=== PATIENT | female | born 1990 | race Caucasian/White ===

== ENCOUNTER 2017-10-12 19:25 | Emergency (ER) | payer OTHER ==
[~2017-10-12] VITALS: Ht 149.9 cm; Wt 73.5 kg
[~2017-10-12 19:25] MED LIST: BENTYL20 MG PO; Bactrim Ds Tab1 EACH PO; GLIM2 PO; HYDACE25S PR; INSDET100 SQ; LISI5 PO; METF500 PO; Norco 5-325 Ta1 EACH PO; PERM5TC TOP; SULTRIDS PO; Zofran Odt4 MG SL; [UNRECOGNIZED DRUG - OTHER]; [UNRECOGNIZED DRUG - OTHER] PO; [UNRECOGNIZED DRUG - REMARK]
[2017-10-12 19:54] LABS: BASOPHILS ABSOLUTE AUTO 0.02 K/mm3 (0.00-0.23); BASOPHILS PERCENT AUTO 0 % (0-2); EOSINOPHILS ABSOLUTE AUTO 0.14 K/mm3 (0.00-0.68); EOSINOPHILS PERCENT AUTO 1 % (0-6); Hematocrit 36.2 % (33.0-51.0); Hemoglobin 12.6 g/dL (11.5-16.0); IMMATURE GRAN ABSOLUTE AUTO 0.03 K/mm3 (0.00-0.10); IMMATURE GRAN PERCENT AUTO 0 % (0-1); LYMPHOCYTES PERCENT AUTO 28 % (21-46); MONOCYTES ABSOLUTE AUTO 0.58 K/mm3 (0.16-1.47); MONOCYTES PERCENT AUTO 4 % (4-13); Mean Corpuscular HGB 30.7 pg (26.0-34.0); Mean Corpuscular HGB Conc 34.8 g/dL (31.5-36.5); Mean Corpuscular Volume 88 fL (80-100); Mean Platelet Volume 9.4 fL (9.1-12.4); NEUTROPHILS ABSOLUTE AUTO 9.29 K/mm3 (1.96-9.15); NEUTROPHILS PERCENT AUTO 66 % (41-73); Platelet Count 324 K/mm3 (150-400); RDW Coefficient Variation 12.9 % (11.7-14.2); RDW Standard Deviation 41.7 fL (35.1-46.3); White Blood Cell Count 14.06 K/mm3 (4.00-11.30)
[2017-10-12 20:14] LABS: Alanine Aminotransfer (ALT/SGP 21 U/L (12-78); Albumin, Blood 3.2 g/dL (3.4-5.0); Albumin/Globulin Ratio 0.8 (0.8-1.8); Alk Phos 67 U/L (50-136); Anion Gap 7 mmol/L (6-16); Aspartate Aminotrans (AST/SGOT 19 U/L (12-37); Bilirubin, Total 0.3 mg/dL (0.1-1.0); Blood Urea Nitrogen 9 mg/dL (8-24); Bun/Creatinine Ratio 14.8 (12.0-20.0); CO2, Blood 25 mmol/L (21-32); Chloride, Blood 107 mmol/L (98-108); Creatinine, Blood 0.61 mg/dL (0.40-1.00); Globulin, Blood 3.9 g/dL (2.2-4.0); Glomerular Filtration Rate >60 (60-); Glucose, Blood 154 mg/dL (70-99); Potassium, Blood 3.8 mmol/L (3.5-5.5); Sodium, Blood 139 mmol/L (136-145); Total Protein, Blood 7.1 g/dL (6.4-8.2)
[2017-10-12 20:30] LABS: Beta HCG, Quantitative, Serum 27237 mIU/mL (0-3)
[2017-10-12 22:49] LABS: Source, Urine Clean Catch
[2017-10-12 22:51] LABS: Bilirubin, Urine Neg (Neg); Blood, Urine Neg (Neg); Glucose Qualitative, Urine 4+ (Neg); Ketones, Urine Neg (Neg); Leukocyte Esterase, Urine Neg (Neg); Nitrite, Urine Neg (Neg); Protein, Urine 1+ (Neg); Specific Gravity, Urine 1.025 (1.003-1.022); Urobilinogen, Urine NORM (Normal)
[2017-10-12 22:56] LABS: Appearance, Urine Clear (Clear); Color, Urine Yellow (P-Yellow)
[2018-03-22] MEDS ORDERED: Percocet 5-3251 EACH PO (07:35)
[2018-03-22] MEDS ORDERED: IBUP800 PO (07:36)
[2018-03-22] MEDS ORDERED: LANTUS SC (07:42)
[2018-03-22] MEDS ORDERED: GLARGINE SC (07:42)
[2018-03-22] MEDS ORDERED: NOVLOG SC (07:43)
[2018-03-22] MEDS ORDERED: ASPART SC (07:43)
== END 2017-10-12 23:34 | disposition home or self-care (01) ==
LOC: ER 19:25
PROVIDERS: Emergency Medicine
DX: O20.0 Threatened abortion (principal); O24.912 Unspecified diabetes mellitus in pregnancy, second trimester; Z79.84 Long term (current) use of oral hypoglycemic drugs; Z79.4 Long term (current) use of insulin; Z3A.15 15 weeks gestation of pregnancy
CPT/HCPCS: 36415; 76815; 80053; 83690; 84702; 85025; 99284

== ENCOUNTER → 2017-11-20 | Outpatient (CLI) | payer OTHER ==
[~2017-11-20] MED LIST changes: +ASPART SC; +GLARGINE SC; +IBUP800 PO; +INS70/30I; +LANTUS SC; +NOVLOG SC; +Percocet 5-3251 EACH PO; +Tamiflu75 MG PO; +Verotin-Gr Cap1 EACH PO
[2017-11-20 18:47] LABS: U Amphetamine Screen Not Detected; U Barbituate Screen Not Detected; U Benzodiazapine Screen Not Detected; U Buprenorphine Screen Not Detected; U Cannabinoids Screen DETECTED; U Cocaine Screen Not Detected; U Methadone Screen Not Detected; U Methamphetamine Screen DETECTED; U Opiates Screen Not Detected; U Oxycodone Screen Not Detected; U Phencyclidine Screen Not Detected; U Propoxyphene Screen Not Detected
[2017-11-22 13:33] LABS: MDA Not Detected (NOTDET); MDEA Not Detected (NOTDET); MDMA Not Detected (NOTDET)
== END | disposition home or self-care (01) ==
LOC: LAB 11:45
PROVIDERS: Obstetrics & Gynecology
DX: Z34.80 Encounter for supervision of other normal pregnancy, unspecified trimester (principal)
CPT/HCPCS: G0480

== ENCOUNTER 2017-12-09 18:16 | Emergency (ER) | payer OTHER ==
[~2017-12-09] VITALS: Ht 149.9 cm; Wt 76.7 kg
[~2017-12-09 18:16] MED LIST changes: -ASPART SC; -GLARGINE SC; -IBUP800 PO; -INS70/30I; -LANTUS SC; -NOVLOG SC; -Percocet 5-3251 EACH PO; -Tamiflu75 MG PO; -Verotin-Gr Cap1 EACH PO
[2017-12-09] MEDS ORDERED: Verotin-Gr Cap1 EACH PO (18:37)
[2017-12-09 19:26] LABS: Influenza A Positive (NEGATIVE); Influenza B Negative (NEGATIVE)
[2017-12-09] MEDS ORDERED: Tamiflu75 MG PO (19:44)
[2018-03-22] MEDS ORDERED: Percocet 5-3251 EACH PO (07:35)
[2018-03-22] MEDS ORDERED: IBUP800 PO (07:36)
[2018-03-22] MEDS ORDERED: LANTUS SC (07:42)
[2018-03-22] MEDS ORDERED: GLARGINE SC (07:42)
[2018-03-22] MEDS ORDERED: ASPART SC (07:43)
[2018-03-22] MEDS ORDERED: NOVLOG SC (07:43)
== END 2017-12-09 19:46 | disposition home or self-care (01) ==
LOC: ER 18:16
PROVIDERS: Physician Assistant
DX: O99.512 Diseases of the respiratory system complicating pregnancy, second trimester (principal); J10.1 Influenza due to other identified influenza virus with other respiratory manifestations; O24.312 Unspecified pre-existing diabetes mellitus in pregnancy, second trimester; E11.9 Type 2 diabetes mellitus without complications; Z3A.22 22 weeks gestation of pregnancy; Z79.899 Other long term (current) drug therapy
CPT/HCPCS: 87804; 99283

== ENCOUNTER → 2017-12-26 | Outpatient (CLI) | payer OTHER ==
[~2017-12-26] MED LIST changes: +ASPART SC; +GLARGINE SC; +IBUP800 PO; +INS70/30I; +LANTUS SC; +NOVLOG SC; +Percocet 5-3251 EACH PO; +Tamiflu75 MG PO; +Verotin-Gr Cap1 EACH PO
[2017-12-26 13:07] LABS: U Amphetamine Screen Not Detected; U Barbituate Screen Not Detected; U Benzodiazapine Screen Not Detected; U Buprenorphine Screen Not Detected; U Cannabinoids Screen Not Detected; U Cocaine Screen Not Detected; U Methadone Screen Not Detected; U Methamphetamine Screen Not Detected; U Opiates Screen Not Detected; U Oxycodone Screen Not Detected; U Phencyclidine Screen Not Detected; U Propoxyphene Screen Not Detected
== END ==
LOC: LAB 09:05
PROVIDERS: Obstetrics & Gynecology
DX: F19.10 Other psychoactive substance abuse, uncomplicated (principal)

== ENCOUNTER 2018-02-19 16:51 | Inpatient (IN) | payer OTHER ==
[~2018-02-19] VITALS: Ht 149.9 cm; Wt 76.2 kg
[~2018-02-19 16:51] MED LIST changes: -ASPART SC; -GLARGINE SC; -IBUP800 PO; -INS70/30I; -LANTUS SC; -NOVLOG SC; -Percocet 5-3251 EACH PO
[2018-02-19] MEDS ORDERED: INS70/30I (18:20)
[2018-02-19 19:24] LABS: BASOPHILS ABSOLUTE AUTO 0.01 K/mm3 (0.00-0.23); BASOPHILS PERCENT AUTO 0 % (0-2); EOSINOPHILS ABSOLUTE AUTO 0.03 K/mm3 (0.00-0.68); EOSINOPHILS PERCENT AUTO 0 % (0-6); Hematocrit 36.1 % (33.0-51.0); Hemoglobin 12.3 g/dL (11.5-16.0); IMMATURE GRAN ABSOLUTE AUTO 0.05 K/mm3 (0.00-0.10); IMMATURE GRAN PERCENT AUTO 0 % (0-1); LYMPHOCYTES ABSOLUTE AUTO 3.14 K/mm3 (0.84-5.20); LYMPHOCYTES PERCENT AUTO 28 % (21-46); MONOCYTES ABSOLUTE AUTO 0.66 K/mm3 (0.16-1.47); MONOCYTES PERCENT AUTO 6 % (4-13); Mean Corpuscular HGB 30.6 pg (26.0-34.0); Mean Corpuscular HGB Conc 34.1 g/dL (31.5-36.5); Mean Corpuscular Volume 90 fL (80-100); Mean Platelet Volume 10.4 fL (9.1-12.4); NEUTROPHILS ABSOLUTE AUTO 7.25 K/mm3 (1.96-9.15); NEUTROPHILS PERCENT AUTO 65 % (41-73); Platelet Count 293 K/mm3 (150-400); RDW Coefficient Variation 11.9 % (11.7-14.2); RDW Standard Deviation 38.5 fL (35.1-46.3); Red Blood Cell Count 4.02 M/mm3 (3.80-5.20); White Blood Cell Count 11.14 K/mm3 (4.00-11.30)
[2018-02-19 19:36] LABS: Anion Gap 11 mmol/L (6-16); Blood Urea Nitrogen 8 mg/dL (8-24); Bun/Creatinine Ratio 13.8 (12.0-20.0); CO2, Blood 20 mmol/L (21-32); Calcium, Blood 8.8 mg/dL (8.5-10.1); Chloride, Blood 101 mmol/L (98-108); Creatinine, Blood 0.58 mg/dL (0.40-1.00); Glomerular Filtration Rate >60 (60-); Glucose, Blood 358 mg/dL (70-99); Sodium, Blood 132 mmol/L (136-145)
[2018-02-19 20:08] LABS: U Amphetamine Screen Not Detected; U Barbituate Screen Not Detected; U Benzodiazapine Screen Not Detected; U Buprenorphine Screen Not Detected; U Cannabinoids Screen DETECTED; U Cocaine Screen Not Detected; U Methadone Screen Not Detected; U Methamphetamine Screen Not Detected; U Opiates Screen Not Detected; U Oxycodone Screen Not Detected; U Phencyclidine Screen Not Detected; U Propoxyphene Screen Not Detected
[2018-02-20 04:36] LABS: Anion Gap 10 mmol/L (6-16); Blood Urea Nitrogen 6 mg/dL (8-24); Bun/Creatinine Ratio 12.2 (12.0-20.0); CO2, Blood 22 mmol/L (21-32); Calcium, Blood 8.1 mg/dL (8.5-10.1); Chloride, Blood 108 mmol/L (98-108); Creatinine, Blood 0.49 mg/dL (0.40-1.00); Glomerular Filtration Rate >60 (60-); Glucose, Blood 144 mg/dL (70-99); Potassium, Blood 3.5 mmol/L (3.5-5.5); Sodium, Blood 140 mmol/L (136-145)
[2018-02-20 09:52] LABS: Alanine Aminotransfer (ALT/SGP 9 U/L (12-78); Albumin, Blood 2.1 g/dL (3.4-5.0); Albumin/Globulin Ratio 0.6 (0.8-1.8); Alk Phos 84 U/L (50-136); Aspartate Aminotrans (AST/SGOT 8 U/L (12-37); Bilirubin, Direct <0.1 mg/dL (0.0-0.3); Bilirubin, Indirect Unable to Calculate mg/dL (0.1-0.7); Bilirubin, Total 0.2 mg/dL (0.1-1.0); Globulin, Blood 3.8 g/dL (2.2-4.0); Total Protein, Blood 5.9 g/dL (6.4-8.2); Uric Acid, Blood 3.7 mg/dL (2.6-6.0)
[2018-02-21 11:01] LABS: Creatinine Urine 27.9 mg/dL (27.00-270.00)
== END 2018-02-22 10:45 | disposition home or self-care (01) | DRG 781 ==
LOC: OBS 16:51 → ICUE 17:03 → BC 17:03 → ICUE 19:00 → BC 02-20 10:56
PROVIDERS: Obstetrics & Gynecology
DX: O24.113 Pre-existing type 2 diabetes mellitus, in pregnancy, third trimester (principal); O99.323 Drug use complicating pregnancy, third trimester; Z3A.34 34 weeks gestation of pregnancy; Z79.4 Long term (current) use of insulin; Z59.0 Homelessness; O99.333 Smoking (tobacco) complicating pregnancy, third trimester; F17.220 Nicotine dependence, chewing tobacco, uncomplicated; F15.90 Other stimulant use, unspecified, uncomplicated; E11.65 Type 2 diabetes mellitus with hyperglycemia
CPT/HCPCS: 36415; 59025; 76815; 80048; 80076; 81050; 82570; 82947; 84156; 84550; 85025; J1815; J7030; J7042

== ENCOUNTER 2019-09-26 00:09 | Emergency (ER) | payer OTHER ==
[~2019-09-26] VITALS: Ht 149.9 cm; Wt 81.7 kg
[~2019-09-26 00:09] MED LIST changes: +ASPART SC; +GLARGINE SC; +IBUP800 PO; +INS70/30I; +LANTUS SC; +NOVLOG SC; +Percocet 5-3251 EACH PO
[2019-09-26] MEDS ORDERED: CEPH500 PO (00:52)
[2019-09-26] MEDS ORDERED: Bactrim Ds Tab1 EACH PO (00:52)
== END 2019-09-26 01:08 | disposition home or self-care (01) ==
LOC: ER 00:09
DX: L02.416 Cutaneous abscess of left lower limb (principal); E11.9 Type 2 diabetes mellitus without complications; G89.29 Other chronic pain
CPT/HCPCS: 10060; 99283-25; A9270-GY

== ENCOUNTER 2019-10-31 15:40 | Emergency (ER) | payer OTHER ==
[~2019-10-31] VITALS: Ht 149.9 cm; Wt 81.7 kg
[~2019-10-31 15:40] MED LIST changes: +CEPH500 PO
== END 2019-10-31 16:30 | disposition home or self-care (01) ==
LOC: ER 15:40
DX: E11.65 Type 2 diabetes mellitus with hyperglycemia (principal)
CPT/HCPCS: 99283

== ENCOUNTER 2020-01-29 15:53 | Emergency (ER) | payer OTHER ==
[~2020-01-29] VITALS: Ht 149.9 cm; Wt 72.6 kg
[2020-01-29] MEDS ORDERED: INSULANPEN SC (17:17)
[2020-01-29] MEDS ORDERED: NOVOLOG100 UNIT/1 SC (17:17)
[2020-01-29] MEDS ORDERED: CEPH500 PO (18:03)
[2020-01-29] MEDS ORDERED: Bactrim Ds Tab1 EACH PO (18:03)
== END 2020-01-29 18:10 | disposition home or self-care (01) ==
LOC: ER 15:53
DX: L02.416 Cutaneous abscess of left lower limb (principal); L03.116 Cellulitis of left lower limb; M25.572 Pain in left ankle and joints of left foot; M77.9 Enthesopathy, unspecified; E11.9 Type 2 diabetes mellitus without complications; Z87.891 Personal history of nicotine dependence; Z79.4 Long term (current) use of insulin
CPT/HCPCS: 10060; 99282-25; A9270-GY

== ENCOUNTER 2021-01-09 13:22 | Inpatient (IN) | payer OTHER ==
[~2021-01-09 13:22] MED LIST changes: +INSULANPEN SC; +NOVOLOG100 UNIT/1 SC
--- NOTE | 2021-01-09 14:30 | NUR ---
Pt presented to unit with bleeding from ED. Pt taken to room placed in bed, large amount of bleeding seen, approximate 16 week stillborn delivered at 1329. Cord cut, placenta delivered 1338, appeared intact. Bedside u/s by Dr. Loza, no visible products of conception in uterus. Pt reports she had spotting a few days ago then had large gush when using bathroom earlier today. Came to ER. Pt admits to past history of IV drug use, and current THC use. Pt reports having positive test in July and that she did not seek PNC r/t her being in [place] and on OHP so unable to seek care in [place]. Pt reports hx of diabetes and increased BP with last delivery, which was emergency CS for failure to dilate.
[2021-01-09 14:58] LABS: BASOPHILS ABSOLUTE AUTO 0.02 K/mm3 (0.00-0.23); BASOPHILS PERCENT AUTO 0 % (0-2); EOSINOPHILS ABSOLUTE AUTO 0.09 K/mm3 (0.00-0.68); EOSINOPHILS PERCENT AUTO 1 % (0-6); Hematocrit 41.4 % (33.0-51.0); Hemoglobin 14.2 g/dL (11.5-16.0); IMMATURE GRAN ABSOLUTE AUTO 0.07 K/mm3 (0.00-0.10); IMMATURE GRAN PERCENT AUTO 0 % (0-1); LYMPHOCYTES ABSOLUTE AUTO 2.94 K/mm3 (0.84-5.20); LYMPHOCYTES PERCENT AUTO 18 % (21-46); MONOCYTES ABSOLUTE AUTO 0.58 K/mm3 (0.16-1.47); MONOCYTES PERCENT AUTO 4 % (4-13); Mean Corpuscular HGB 30.5 pg (26.0-34.0); Mean Corpuscular HGB Conc 34.3 g/dL (31.5-36.5); Mean Corpuscular Volume 89 fL (80-100); Mean Platelet Volume 9.3 fL (9.1-12.4); NEUTROPHILS ABSOLUTE AUTO 12.35 K/mm3 (1.96-9.15); NEUTROPHILS PERCENT AUTO 77 % (41-73); Platelet Count 346 K/mm3 (150-400); RDW Coefficient Variation 11.5 % (11.7-14.2); RDW Standard Deviation 36.6 fL (35.1-46.3); Red Blood Cell Count 4.66 M/mm3 (3.80-5.20); White Blood Cell Count 16.05 K/mm3 (4.00-11.30)
[2021-01-09 15:27] LABS: Alanine Aminotransfer (ALT/SGP 34 U/L (12-78); Albumin, Blood 3.1 g/dL (3.4-5.0); Albumin/Globulin Ratio 0.8 (0.8-1.8); Alk Phos 95 U/L (50-136); Anion Gap 6 mmol/L (6-16); Aspartate Aminotrans (AST/SGOT 36 U/L (12-37); Bilirubin, Total 0.5 mg/dL (0.1-1.0); Blood Urea Nitrogen 7 mg/dL (8-24); Bun/Creatinine Ratio 13.9 (12.0-20.0); CO2, Blood 26 mmol/L (21-32); Calcium, Blood 8.6 mg/dL (8.5-10.1); Chloride, Blood 102 mmol/L (98-108); Ethanol (Alcohol), Blood, Med <3 mg/dL; Globulin, Blood 3.9 g/dL (2.2-4.0); Glomerular Filtration Rate >60 (60-); Glucose, Blood 186 mg/dL (70-99); Potassium, Blood 3.9 mmol/L (3.5-5.5); Sodium, Blood 134 mmol/L (136-145)
[2021-01-09 16:35] LABS: International Normalized Ratio 0.93
--- NOTE | 2021-01-09 17:34 | NUR ---
DEMISE DELIVERY UPON ENTRANCE TO [facility], NO PNC. DR. STARR CALLED TO ASSESS PATIENT
--- NOTE | 2021-01-09 17:55 | NUR ---
fetus sent to pathology, mother insist on discharge as soon as possible and has no interest in bereavement information
[2021-01-11 07:10] LABS: HBSAG SCREEN Negative (Negative); HCV ANTIBODY <0.1 (0.0-0.9)
[2021-01-11 08:10] LABS: HIV SCREEN 4TH GENERATION WRFX Non Reactive (Non Reactive)
[2021-01-13 03:08] LABS: CHLAMYDIA BY NAA Negative (Negative); GONOCOCCUS BY NAA Negative (Negative); TRICH VAG BY NAA Negative (Negative)
--- NOTE | 2021-01-13 15:40 | NUR ---
LATE ENTRY INITIATE PROTOCOL L&D - 01/09/21 1445 PER [facility] RN & EMR
== END 2021-01-09 16:40 | disposition home or self-care (01) | DRG 779 ==
LOC: OBS 13:22 → BC 13:42
PROVIDERS: ADMIT Obstetrics & Gynecology
DX: O02.1 Missed abortion (principal); O24.112 Pre-existing type 2 diabetes mellitus, in pregnancy, second trimester; O10.912 Unspecified pre-existing hypertension complicating pregnancy, second trimester; O99.322 Drug use complicating pregnancy, second trimester; Z3A.16 16 weeks gestation of pregnancy; F15.10 Other stimulant abuse, uncomplicated; F10.10 Alcohol abuse, uncomplicated; F12.10 Cannabis abuse, uncomplicated; E11.9 Type 2 diabetes mellitus without complications; Z91.19 Patient's noncompliance with other medical treatment and regimen; Z90.89 Acquired absence of other organs; Z87.440 Personal history of urinary (tract) infections; Z79.4 Long term (current) use of insulin
CPT/HCPCS: 80053; 82947; 83036; 84443; 85025; 85384; 85610; 85730; 86592; 86762; 86803; 87340; 87389; 87491; 87591; 87661; 88305; G0480

== ENCOUNTER 2021-04-24 21:26 | Emergency (ER) | payer OTHER ==
[~2021-04-24] VITALS: Ht 152.4 cm; Wt 68.0 kg
== END 2021-04-24 22:16 | disposition left against medical advice (07) ==
LOC: ER 21:26
DX: Z53.21 Procedure and treatment not carried out due to patient leaving prior to being seen by health care provider (principal)

== ENCOUNTER 2022-02-17 21:14 | Inpatient (IN) | payer OTHER ==
[~2022-02-17] VITALS: Ht 152.4 cm; Wt 67.0 kg
[2022-02-17 22:19] LABS: BASOPHILS ABSOLUTE AUTO 0.03 K/mm3 (0.00-0.23); BASOPHILS PERCENT AUTO 0 % (0-2); EOSINOPHILS PERCENT AUTO 0 % (0-6); Hematocrit 45.6 % (33.0-51.0); Hemoglobin 15.3 g/dL (11.5-16.0); IMMATURE GRAN ABSOLUTE AUTO 0.12 K/mm3 (0.00-0.10); IMMATURE GRAN PERCENT AUTO 1 % (0-1); LYMPHOCYTES ABSOLUTE AUTO 1.65 K/mm3 (0.84-5.20); LYMPHOCYTES PERCENT AUTO 9 % (21-46); MONOCYTES ABSOLUTE AUTO 0.97 K/mm3 (0.16-1.47); MONOCYTES PERCENT AUTO 5 % (4-13); Mean Corpuscular HGB 29.7 pg (26.0-34.0); Mean Corpuscular HGB Conc 33.6 g/dL (31.5-36.5); Mean Corpuscular Volume 88 fL (80-100); Mean Platelet Volume 9.1 fL (9.1-12.4); NEUTROPHILS ABSOLUTE AUTO 15.22 K/mm3 (1.96-9.15); NEUTROPHILS PERCENT AUTO 85 % (41-73); Platelet Count 529 K/mm3 (150-400); RDW Coefficient Variation 12.3 % (11.7-14.2); RDW Standard Deviation 39.8 fL (35.1-46.3); Red Blood Cell Count 5.16 M/mm3 (3.80-5.20); White Blood Cell Count 17.99 K/mm3 (4.00-11.30)
[2022-02-17 22:36] LABS: U Amphetamine Screen Not Detected; U Barbituate Screen Not Detected; U Benzodiazapine Screen Not Detected; U Buprenorphine Screen Not Detected; U Cannabinoids Screen Not Detected; U Cocaine Screen Not Detected; U Methadone Screen Not Detected; U Methamphetamine Screen Not Detected; U Opiates Screen Not Detected; U Oxycodone Screen Not Detected; U Phencyclidine Screen Not Detected; U Propoxyphene Screen Not Detected
[2022-02-17 22:48] LABS: Albumin, Blood 3.3 g/dL (3.4-5.0); Albumin/Globulin Ratio 0.6 (0.8-1.8); Beta-hydroxybutyrate 56.2 mg/dL (0.2-2.8); Bilirubin, Total 0.5 mg/dL (0.1-1.0); Bun/Creatinine Ratio 36.8 (12.0-20.0); Calcium, Blood 10.7 mg/dL (8.5-10.1); Creatinine, Blood 0.95 mg/dL (0.40-1.00); Globulin, Blood 5.8 g/dL (2.2-4.0); Potassium, Blood 5.8 mmol/L (3.5-5.5); Total Protein, Blood 9.1 g/dL (6.4-8.2)
[2022-02-17 22:51] LABS: Source, Urine Voided
[2022-02-17 22:59] LABS: Bilirubin, Urine Neg (Neg); Blood, Urine 1+ (Neg); Glucose Qualitative, Urine 4+ (Neg); Ketones, Urine 3+ (Neg); Leukocyte Esterase, Urine 2+ (Neg); Nitrite, Urine Neg (Neg); Protein, Urine Neg (Neg); Urobilinogen, Urine NORM (Normal)
[2022-02-17 23:06] LABS: Appearance, Urine Clear (Clear); Color, Urine Pale Yellow (P-Yellow)
[2022-02-17 23:07] LABS: Bacteria Mod /hpf; Squamous Epithelial Cells Few /hpf (Few); White Blood Cells, Urine 25-50 /hpf (0-5)
--- NOTE | 2022-02-17 23:26 | NUR ---
ARRIVAL TO ICU PT ARRIVES VIA GURNEY WITH 2 [facility] STAFF. PT FULLY ASSISTED TO ICU BED. PT APPEARS ANXIOUS, RESTLESS AND TACHYPNEIC. HR 120S-130S ON MONITOR, SHE IS HYPERTENSIVE, RR 30S-40S. SHE CONTINUOUSLY REPOSTIONS SELF, THEN STS SHE NEEDS TO URINATE. PT STAND BY ASSIST TO SIT ON BEDSIDE COMMODE. NO DIFFICULTY WITH GAIT. SHE IS ALERT AND ORIENTED. POWERGLIDE PLACED TO RACHAEL BY ELISEO ADAM. NS INFUSING WIDE OPEN, INSULIN GTT STARTED AT 5UNITS/HR. PT REPOSITIONS SELF ON L SIDE AND IMMEDIATELY FALLS ASLEEP.
[2022-02-18 00:30] LABS: Glucose, Blood 678 mg/dL (70-99)
[2022-02-18 01:36] LABS: Glucose, Blood 508 mg/dL (70-99)
--- NOTE | 2022-02-18 01:42 | NUR ---
UPDATE PT SLEEPING. DOES NOT ANSWER QUESTIONS. UNCOOPERATIVE AND AGITATED REGARDING COVID SWAB COLLECTION. SAMPLE COLLECTED. PT LYING ON L SIDE WITH EYES CLOSED. CALL LIGHT WITHIN REACH.
[2022-02-18 01:48] LABS: Influenza A, PCR NEGATIVE (NEGATIVE); Influenza B, PCR NEGATIVE (NEGATIVE); Resp Syncytial Virus, PCR NEGATIVE (NEGATIVE); SARS-Cov-2 (COVID-19) PCR, MMC NEGATIVE (NEGATIVE)
[2022-02-18 02:16] LABS: Glucose, Blood 483 mg/dL (70-99)
[2022-02-18 04:32] LABS: Bun/Creatinine Ratio 46.7 (12.0-20.0); Calcium, Blood 9.2 mg/dL (8.5-10.1); Creatinine, Blood 0.75 mg/dL (0.40-1.00); Potassium, Blood 4.2 mmol/L (3.5-5.5)
--- NOTE | 2022-02-18 04:54 | NUR ---
NST SERAFIN ADAM FROM [facility] AT BEDSIDE FOR NST. PT SLEPT THROUGH MOST OF EXAM. MONITOR REMAINS AT BEDSIDE. WILL RE-EVAULATE IN APPROX 6HRS.
--- NOTE | 2022-02-18 06:38 | NUR ---
SHIFT SUMMARY PT HAS MOSTLY BEEN ASLEEP SINCE ADMISSION. SHE ANSWERS QUESTIONS APPROPRIATELY WHEN AWAKE BUT OCCASIONALLY BECOMES AGITATED DURING CARE. SHE IS ON AN INSULIN GTT AT 3UNITS/HR. LAST CBG 418. SHE REMAINS TACHY WITH HR 110S-130S. SHE IS HYPTENSIVE, RECEIVED 2 DOSES OF HYDRALAZINE. RR 16-24, INCREASES WITH EXCERTION TO 20S-40S. SHE REPOSITIONS SELF INDEPENDENTLY IN BED. STAND BY ASSIST TO USE BEDSIDE COMMODE. PT TREMULOUS. SHE HAS A RED RASH ON HER BUTTOCKS. PLAN FOR [facility] TO MONITOR BABY WITH NST Q6HRS. LAST CHECK AROUND 0400. PT RESTING IN BED WITH EYES CLOSED. DENIES NEEDS AT THIS TIME, CALL LIGHT WITHIN REACH. WILL REPORT TO ONCOMING RN.
[2022-02-18 08:29] LABS: Bun/Creatinine Ratio 42.4 (12.0-20.0); Creatinine, Blood 0.8 mg/dL (0.40-1.00); Magnesium, Blood 1.8 mg/dL (1.6-2.4); Potassium, Blood 3.8 mmol/L (3.5-5.5)
[2022-02-18 10:32] LABS: Base Excess Venous -14.5 mmol/L; Bicarbonate Venous 14.3 mmol/L (24.0-30.0); PO2 Venous 91.7 mmHg (38-42); pH Blood Venous 7.25 (7.34-7.37)
--- NOTE | 2022-02-18 10:41 | NUR ---
AM NOTE... ASSUMED CARE OF PT AT 0700, THE PT IS A&Ox4 BUT VERY LETHARGIC, THE PT WAKES TO VERBAL STIMULI AND TOUCH. THE PT IS HYPERTENSIVE WITH SBPs >160. THE PT IS IN ST IN THE 120'S-130'S. NO EDEMA IS NOTED ON ASSESSMENT. THE PT IS ON RA WITH O2 SATS >95% L/S CLEAR T/O. BT PRESENT AND VERY HYPOACTIVE, THE PT IS 29 WEEKS , NO MOVEMENT NOTED DURING ASSESSMENT. THE PT'S FACE IS VERY FLUSHED LOOKING, THE PT'S TEMP IS 98.6. THE PT DENIES ANY ABD PAIN BUT DOES C/O OF LOWER BACK PAIN. NO VAGINAL BLEEDING IS NOTED ON THIS ASSESSMENT. THE PT DOES HAVE A FUNGAL LOOKING RASH ON HER BUTTOCKS. THE PT IS ON AN INSULIN DRIP RUNNING AT 3 UNITS/HR AT THIS TIME. THE PT ALSO HAS NS RUNNING AT 150MLS/HR. AT APROX 0800 THE PROVIDER WAS AT THE BEDSIDE FOR ASSESSMENT, THE PT'S FLUIDS WERE CHANGED FROM 150MLS TO 200MLS/HR AFTER A 250MLS BOLUS. THIS WAS GIVEN AND THE FLUID RATE WAS CHANGED. THE PT REQUESTED TO GET UP OUT OF THE BED AND INTO A RECLINER CHAIR D/T THE LOWER BACK PAIN, THE PT WAS VERY STEADY ON HER FEET DURING THIS TRANSFER. AT APROX 1000 FAMILY RN CAME TO ASSESS THE FETUS. WILL CONTINUE TO MONITOR.
[2022-02-18 10:43] LABS: Bun/Creatinine Ratio 43.2 (12.0-20.0); Calcium, Blood 8.5 mg/dL (8.5-10.1); Creatinine, Blood 0.69 mg/dL (0.40-1.00); Potassium, Blood 3.4 mmol/L (3.5-5.5)
--- NOTE | 2022-02-18 10:47 | NUR ---
Pt in ICU 3, FHR 130 with minimal variabilty, no accels
[2022-02-18 12:14] LABS: Bun/Creatinine Ratio 42.4 (12.0-20.0); Calcium, Blood 8.7 mg/dL (8.5-10.1); Creatinine, Blood 0.73 mg/dL (0.40-1.00); Magnesium, Blood 1.8 mg/dL (1.6-2.4); Potassium, Blood 3.4 mmol/L (3.5-5.5)
--- NOTE | 2022-02-18 14:12 | NUR ---
AM NOTE: PT IS ALERT AND ORIENTED TIMES FOUR; THE PT IS ABLE TO PARTICIPATE IN A CONVERSATION APPROPRIATELY BUT HAS SLOW RESPONSE TIME. PT APPEARS TO BE DROWSY AND IS IN AND OUT OF SLEEP THIS MORNIG. THE PT'S BOYFRIEND, FANNIE, STOPPED BY AT 0830 TO GET UPDATES ABOUT PT'S STATUS. ONCE THE PT'S BOYFRIEND LEFT, I CONFIRMED WITH PT IF FANNIE WAS ABLE TO VISIT AND RECIEVE INFORMATION IN REGARDS STATUS AND PT VERBALLY GAVE PERMISSION TO ALLOW FANNIE TO RECIEVE INFORMATION. THE PT HAS CLEAR LUNG SOUNDS AND IS PERFORMING ADL'S INDEPENDENTLY WITH SUPERVISION WHEN UP. THE PT HAS HAD HIGH BLOOD SUGARS THIS MORNING, BUT INSULIN DRIP HAS BEEN TITRATED PER PROTOCOL IN RESPONSE TO HIGH CBG (SEE FLOW SHEET). PT HAS VBG DRAWN THIS MORNING AND A CRITICAL pH CAME BACK AT 7.[address] ACEVEDO NOTIFEID IMMEDIATELY AT BEDSIDE. PT WAS QUITE HYPERTENSIVE IN THE BEGINNING OF SHIFT WITH SBP IN THE 160'S. PO LABETOLOL INITIATED AT 0953. PT RESPONDED WELL TO MEDICATION AND NOW SBP ARE IN THE 110-120'S. PT HR WAS TACHYCARDIC IN THE BEGINNING OF THE MORNING IN THE 130'S BUT CAME DOWN TO THE 80-90'S. O2 LEVELS HAVE BEEN 98< WITH RESPIRATIONS AT 16-18. THE PT HAS HAD TREMORS THROUHGOUT THE SHIFT AND ADMITTED TO THE LAST SHIFT NURSE OF METH USE WITHIN THE LAST 2-3 DAYS. THE PT WAS RELUCTANT TO FINISH THE ADMISSION HISTORY ASSESSMENT, BUT WE WERE ABLE TO COMPLETE THIS AT 1450. AT 1431 THE PT'S CBG WAS AT 158 AND DEXTROSE INTIATED AT 200 MLS/HR; WILL CONTINUE TO CHECK CBG Q1HR. PT IS NOW RESTING IN THE RECLINER. WILL CONTINUE TO MONITOR THROUGHOUT THE SHIFT.
[2022-02-18 15:11] LABS: BASOPHILS ABSOLUTE AUTO 0.03 K/mm3 (0.00-0.23); BASOPHILS PERCENT AUTO 0 % (0-2); EOSINOPHILS ABSOLUTE AUTO 0.01 K/mm3 (0.00-0.68); EOSINOPHILS PERCENT AUTO 0 % (0-6); Hematocrit 31.2 % (33.0-51.0); Hemoglobin 10.9 g/dL (11.5-16.0); IMMATURE GRAN ABSOLUTE AUTO 0.06 K/mm3 (0.00-0.10); IMMATURE GRAN PERCENT AUTO 1 % (0-1); LYMPHOCYTES ABSOLUTE AUTO 2.72 K/mm3 (0.84-5.20); LYMPHOCYTES PERCENT AUTO 22 % (21-46); MONOCYTES ABSOLUTE AUTO 0.62 K/mm3 (0.16-1.47); MONOCYTES PERCENT AUTO 5 % (4-13); Mean Corpuscular HGB 30.2 pg (26.0-34.0); Mean Corpuscular HGB Conc 34.9 g/dL (31.5-36.5); Mean Corpuscular Volume 86 fL (80-100); Mean Platelet Volume 8.7 fL (9.1-12.4); NEUTROPHILS ABSOLUTE AUTO 8.69 K/mm3 (1.96-9.15); NEUTROPHILS PERCENT AUTO 72 % (41-73); Platelet Count 281 K/mm3 (150-400); RDW Coefficient Variation 12.2 % (11.7-14.2); RDW Standard Deviation 38.4 fL (35.1-46.3); Red Blood Cell Count 3.61 M/mm3 (3.80-5.20); White Blood Cell Count 12.13 K/mm3 (4.00-11.30)
--- NOTE | 2022-02-18 16:47 | NUR ---
pt awake and alert. FHR 125 with minimal variability and no decels. audible movement
[2022-02-18 16:57] LABS: Bun/Creatinine Ratio 40.1 (12.0-20.0); Calcium, Blood 8.2 mg/dL (8.5-10.1); Creatinine, Blood 0.72 mg/dL (0.40-1.00)
--- NOTE | 2022-02-18 17:40 | NUR ---
SHIFT SUMMARY... NO ACUTE NEGATIVE CHANGES NOTED THIS SHIFT, THE PT'S BP IMPROVED GREATLY AFTER TAKING THE PO LABATOLOL, THE PT'S SBPs HAVE BEEN IN THE 120'S-140'S. THE PT CONTINUES ON THE INSULIN DRIP AT 4UNITS/HR, THE PT IS SCHEDULED TO GET 10 UNITS OF NPH WITH DINNER AND THE DRIPS ORDERED TO BE STOPPED 2 HRS AFTER THIS IS GIVEN. THE PT HAS DENIED ANY ABD PAIN ALL SHIFT UNTIL SHE STARTED TO EAT DINNER, NOW SHE IS C/O OF "SLIGHT CRAMPING" PAIN TO HER RUQ. THE PT HAS NOT HAD ANY VAGINAL BLEEDING NOTED BY THIS RN HOWEVER THE PT IS NOTED TO HAVE RECTAL BLEEDING WITH A MED BROWN HARD BM. THE PT WAS GIVEN A HEATING PAD TO APPLY TO HER LOWER BACK FOR CHRONIC BACK PAIN. THE PT STATED THAT SHE HAS NOTICED INCREASED MOVEMENT BY THE FETUS THIS EVENING. THE PT HAS ONLY VOIDED 500MLS THIS SHIFT. THE PT'S S.O FANNIE HAS BEEN AT THE BEDSIDE SEVERAL TIMES T/O THIS SHIFT. CALL LIGHT IN REACH WILL CONTINUE TO MONITOR UNTIL REPORT IS GIVEN TO ONCOMING RN.
--- NOTE | 2022-02-18 19:15 | NUR ---
ASSUMED CARE OF PT AT 1915. PT WAS SLEEPING IN RECLINER NEXT TO BED. PT VERY DIFFICULT TO AROUSE, ONCE AWAKE A&O X4 AND ABLE TO MAKE NEEDS KNOWN. PT WAS INFUSING 4 UNIT/HR OF INSULIN R, TURNED OFF DUE TO COMPLETING BAG. D5W IV FLUIDS INFUSING AT 200 ML/HR, TURNED OFF WITH INSULIN. PT HAD ORAL SPONGE IN MOUTH WHILE ASLEEP. BP 127/83, PT IS IN NSR, RATE IN 90S. LEBATOLOL WAS HELD DUE TO BPS 120S-130S SYSTOLIC. NO COMPLAINTS OF ABDOMINAL CRAMPING OR VAGINAL BLEEDING. FAMILY NURSE TO COME UP AND ASSESS MOVEMENTS Q6HRS. CALL LIGHT IN REACH, PT ABLE TO MAKE NEEDS KNOWN. SEE SHIFT DETAILS FOR FURTHER SUMMARY.
[2022-02-18 23:26] LABS: Bun/Creatinine Ratio 30.8 (12.0-20.0); Calcium, Blood 8.5 mg/dL (8.5-10.1); Creatinine, Blood 0.81 mg/dL (0.40-1.00); Potassium, Blood 3.8 mmol/L (3.5-5.5)
--- NOTE | 2022-02-19 05:23 | NUR ---
END OF SHIFT SUMMARY. PT SLEPT THROUGH MOST OF SHIFT, A & O X4 BUT DIFFICULT TO AROUSE. PT'S LABETALOL HELD DUE TO BP 122/88, GIVEN AT 0147 FOR BP OF 160/103. BP IS NOW 123/90 WITH HR IN THE 80S. PT WAS IN SINUS TACH AT THE BEGINNING OF THE SHIFT, NOW IS NSR. RR IS 16, SPO2 READINGS IN THE HIGH 90S-100%. PT AMBULATED TO COMMODE INDEPENDENTLY WITH OUTPUT OF 600 CCS, THE ONLY VOID THIS SHIFT. PT STATES THAT VAGINAL AREA IS VERY ITCHY, AND AN ODOR IS NOTED. PT COMPLAINS OF NAUSEA AND PAIN 8/10, GIVEN TYLENOL AND PHENERGAN. PT IS VERY SLEEPY, UNABLE TO GIVE PAIN RATING AFTER RECIEVING TYLENOL BUT NODDED HEAD YES TO IMPROVEMENT. [facility] CAME TO PERFORM NON-STRESS TESTS FOR FETUS, PT DENIES ANY LOWER ABDOMINAL PAIN OR CRAMPING, NO VAGINAL BLEEDING. WILL CONTINUE TO MONITOR TO ONCOMING RN.
[2022-02-19 06:05] LABS: Bun/Creatinine Ratio 29.8 (12.0-20.0); Calcium, Blood 8.6 mg/dL (8.5-10.1); Creatinine, Blood 0.81 mg/dL (0.40-1.00); Potassium, Blood 3.8 mmol/L (3.5-5.5)
[2022-02-19 08:09] LABS: HIV AB/P24 AG SCREEN Non Reactive (Non Reactive)
--- NOTE | 2022-02-19 09:42 | NUR ---
ASSUMED CARE OF PT, REPORT RCV'D FROM JAIR SONG. PT ALERT AND ORIENTED, WITHDRAWN BUT COOPERATIVE WITH CARE. STANDBY ASSIST FROM CHAIR TO BED. PT DENIES NAUSEA OR PAIN AT THIS TIME. VSS. SEE FULL SHIFT ASSESSMENT.
[2022-02-19 12:58] LABS: Bun/Creatinine Ratio 26.8 (12.0-20.0); Calcium, Blood 8.8 mg/dL (8.5-10.1); Creatinine, Blood 0.86 mg/dL (0.40-1.00); Potassium, Blood 3.9 mmol/L (3.5-5.5)
--- NOTE | 2022-02-19 17:27 | NUR ---
SHIFT SUMMARY PT REMAINS ALERT AND ORIENTED, COOPERATIVE WITH CARE, MORE INTERACTIVE WITH STAFF. PT INDEPENDENT IN ROOM, APPROPRIATELY USES CALL LIGHT. VSS T/O SHIFT. PT DENIES NEEDS AT THIS TIME. WILL REPORT TO ONCOMING NURSE.
[2022-02-19 17:59] LABS: Calcium, Blood 8.2 mg/dL (8.5-10.1); Creatinine, Blood 0.88 mg/dL (0.40-1.00); Potassium, Blood 3.8 mmol/L (3.5-5.5)
--- NOTE | 2022-02-19 19:15 | NUR ---
ASSUMED CARE OF PT AT 1915. PT HAS BOYFRIEND AT THE BEDSIDE. SITTING IN THE RECLINER WITH CALL LIGHT IN REACH. SEE SHIFT SUMMARY FOR FURTHER DETAILS.
--- NOTE | 2022-02-19 22:00 | NUR ---
PT STATES THAT SHE HAS CHEWING TOBACCO, SHOWED THE CONTAINER AND SAID THAT SHE DID NOT WANT TO HIDE IT FROM STAFF. SHE STATES THAT HER DOCTOR TOLD HER THAT IT WAS FINE TO HAVE.
--- NOTE | 2022-02-20 00:10 | NUR ---
ADMINISTERED PT HALF DOSE (100 MG) OF LABETALOL AT 2158 DUE TO BP OF 141/86. RECHECKED BP TWO HOURS LATER AND DECREASED TO 122/79. WILL CONTINUE TO MONITOR.
[2022-02-20 03:14] LABS: Calcium, Blood 8.3 mg/dL (8.5-10.1); Creatinine, Blood 0.82 mg/dL (0.40-1.00); Potassium, Blood 3.3 mmol/L (3.5-5.5); Thyroid Stimulating Hormone 1.01 uIU/mL (0.360-4.800)
--- NOTE | 2022-02-20 07:10 | NUR ---
END OF SHIFT SUMMARY. PT A & O X4, RESTED MOST OF NIGHT. SNACKED AFTER FASTING LAB AT 0230. DISCONINTUNIED MIDLINE TO L UPPER ARM DUE TO PATIENT COMPLAINING OF ITCHINESS. PT INDEPENDANT IN ROOM, ABLE TO MAKE NEEDS KNOWN. NO ACUTE CHANGES. REPORTED OFF TO JAIR JONES.
--- NOTE | 2022-02-20 07:20 | NUR ---
TOOK OVER CARE OF PT AT 0700, PT RESTING ON RA, NO DRIPS RUNNING.
[2022-02-20 13:40] LABS: Calcium, Blood 8.8 mg/dL (8.5-10.1); Creatinine, Blood 0.79 mg/dL (0.40-1.00); Potassium, Blood 3.7 mmol/L (3.5-5.5)
[2022-02-20] MEDS ORDERED: LABE200 PO (15:42)
[2022-02-20] MEDS ORDERED: HUMULIN 70100 UNIT/3 SC (15:46)
[2022-02-20] MEDS ORDERED: HUMALOG KW100 UNIT/1 SC (15:51)
[2022-02-21 11:10] LABS: HBSAG SCREEN Negative (Negative); HEP B CORE AB, TOT Negative (Negative)
== END 2022-02-20 16:30 | disposition home or self-care (01) | DRG 831 ==
LOC: BC 21:14 → OBS 21:14 → BC 21:16 → OBS 02-18 00:10 → ICUW 02-18 00:11 → ICUE 02-18 00:11
PROVIDERS: Hospitalist; Internal Medicine; Student in an Organized Health Care Education/Training Program; ADMIT Obstetrics & Gynecology
DX: O24.013 Pre-existing type 1 diabetes mellitus, in pregnancy, third trimester (principal); E10.10 Type 1 diabetes mellitus with ketoacidosis without coma; O99.323 Drug use complicating pregnancy, third trimester; O10.913 Unspecified pre-existing hypertension complicating pregnancy, third trimester; O99.283 Endocrine, nutritional and metabolic diseases complicating pregnancy, third trimester; O99.333 Smoking (tobacco) complicating pregnancy, third trimester; O36.8330 Maternal care for abnormalities of the fetal heart rate or rhythm, third trimester, not applicable or unspecified; F15.10 Other stimulant abuse, uncomplicated; F32.A Depression, unspecified; F12.90 Cannabis use, unspecified, uncomplicated; Z20.822 Contact with and (suspected) exposure to COVID-19; F10.10 Alcohol abuse, uncomplicated; Z3A.29 29 weeks gestation of pregnancy; Z79.899 Other long term (current) drug therapy; Z79.4 Long term (current) use of insulin; R41.82 Altered mental status, unspecified; O75.89 Other specified complications of labor and delivery; E87.6 Hypokalemia
CPT/HCPCS: 0241U; 36415; 59025; 80048; 80053; 81001; 81003; 82010; 82803; 82947; 83036; 83735; 84443; 85025; 86317; 86592; 86704; 86762; 86850; 86900; 86901; 87086; 87340; 87389; A9270; C1751; C9113; J0360; J1815; J2550; J3480; J7030; J7042; J7120

== ENCOUNTER 2022-03-06 09:30 | Inpatient (IN) | payer OTHER ==
[~2022-03-06] VITALS: Ht 152.4 cm; Wt 84.3 kg
[~2022-03-06 09:30] MED LIST changes: +HUMALOG KW100 UNIT/1 SC; +HUMULIN 70100 UNIT/3 SC; +LABE200 PO
[2022-03-06] MEDS ORDERED: FAMO20 PO (11:05)
[2022-03-06] MEDS ORDERED: ONE-A-DAY PREN1 EAC1 PO (11:06)
[2022-03-06] MEDS ORDERED: INSULIN LI100 UNIT/6 SC (11:07)
[2022-03-06] MEDS ORDERED: LABE200 PO (11:07)
[2022-03-06 12:56] LABS: BASOPHILS ABSOLUTE AUTO 0.02 K/mm3 (0.00-0.23); BASOPHILS PERCENT AUTO 0 % (0-2); EOSINOPHILS ABSOLUTE AUTO 0.01 K/mm3 (0.00-0.68); EOSINOPHILS PERCENT AUTO 0 % (0-6); Hemoglobin 12.4 g/dL (11.5-16.0); IMMATURE GRAN ABSOLUTE AUTO 0.05 K/mm3 (0.00-0.10); IMMATURE GRAN PERCENT AUTO 0 % (0-1); LYMPHOCYTES ABSOLUTE AUTO 1.27 K/mm3 (0.84-5.20); LYMPHOCYTES PERCENT AUTO 9 % (21-46); MONOCYTES ABSOLUTE AUTO 0.51 K/mm3 (0.16-1.47); MONOCYTES PERCENT AUTO 4 % (4-13); Mean Corpuscular HGB Conc 32.6 g/dL (31.5-36.5); Mean Corpuscular Volume 89 fL (80-100); NEUTROPHILS ABSOLUTE AUTO 12.29 K/mm3 (1.96-9.15); NEUTROPHILS PERCENT AUTO 87 % (41-73); Platelet Count 363 K/mm3 (150-400); RDW Coefficient Variation 13.2 % (11.7-14.2); RDW Standard Deviation 42.2 fL (35.1-46.3); Red Blood Cell Count 4.27 M/mm3 (3.80-5.20); White Blood Cell Count 14.15 K/mm3 (4.00-11.30)
[2022-03-06 13:14] LABS: Albumin, Blood 2.5 g/dL (3.4-5.0); Albumin/Globulin Ratio 0.5 (0.8-1.8); Bun/Creatinine Ratio 9.9 (12.0-20.0); Calcium, Blood 8.7 mg/dL (8.5-10.1); Creatinine, Blood 0.51 mg/dL (0.40-1.00); Globulin, Blood 4.7 g/dL (2.2-4.0); Potassium, Blood 3.6 mmol/L (3.5-5.5); Total Protein, Blood 7.2 g/dL (6.4-8.2)
--- NOTE | 2022-03-06 19:17 | NUR ---
NURSE NOTE FOUND CHEW TOBACCO IN PATIENT BED. INFORMED PATIENT OF HOSPITAL POLICY AND THAT IT NEEDED TO BE LOCKED UP. PATIENT BECAME VERY UPSET ABOUT THIS. DR. STARR AT BEDSIDE AND OFFERED NICOTENE PATCHES. PATIENT REFUSED. CHEW LOCKED UP IN MEDICINE DRAWER.
--- NOTE | 2022-03-06 19:20 | NUR ---
SHIFT SUMMARY PATIENT ADMITTED FROM ER THIS AFTERNOON. ON ARRIVAL PATIENT EXTREMELY PAINFUL, SCREAMING OUT IN PAIN. PAIN MEDICATION GIVEN PER DR. ADMISSION ASSESSMENT COMPLETED. PATIENT TOO PAINFUL TO TURN AND LOOK AT BOTTOM FOR SKIN ASSESSMENT BUT DENIES ANY SKIN ISSUES. MULITPLE WOUNDS NOTED ON HER LLE, LEFT FOREARM, AND RIGHT FOOT. PATIENT STATED THEY ARE SPIDER BITES. HX OF METH USE STATING LAST USED 2 WEEKS AGO. HX OF DM AND HTN. ORTHO NOTIFED OF CONSULT. PATIENT 32 WKS . MONITORING DONE IN ER. PATIENT HR ELEVATED. REPORT GIVEN TO ONCOMING RN.
[2022-03-06 21:45] LABS: Source, Urine Clean Catch
[2022-03-06 21:48] LABS: Appearance, Urine Clear (Clear); Bilirubin, Urine Neg (Neg); Blood, Urine Neg (Neg); Glucose Qualitative, Urine 4+ (Neg); Ketones, Urine 4+ (Neg); Leukocyte Esterase, Urine 1+ (Neg); Nitrite, Urine Pos (Neg); Protein, Urine Neg (Neg); Urobilinogen, Urine NORM (Normal)
[2022-03-06 22:00] LABS: Color, Urine Pale Yellow (P-Yellow)
[2022-03-06 22:01] LABS: Bacteria Many /hpf; Red Blood Cells, Urine Rare /hpf (0-2); Squamous Epithelial Cells Few /hpf (Few)
[2022-03-06 22:03] LABS: U Amphetamine Screen DETECTED; U Barbituate Screen Not Detected; U Benzodiazapine Screen Not Detected; U Buprenorphine Screen Not Detected; U Cannabinoids Screen Not Detected; U Cocaine Screen Not Detected; U Methadone Screen Not Detected; U Methamphetamine Screen DETECTED; U Opiates Screen DETECTED; U Oxycodone Screen Not Detected; U Phencyclidine Screen Not Detected; U Propoxyphene Screen Not Detected
--- NOTE | 2022-03-07 04:22 | NUR ---
SHIFT SUMMARY: PT IS ALERT AND ORIENTED, LETHARGIC AT THE START OF SHIFT. PT IS CALM AND COOPERATIVE WITH CARE. PT CALLS APPROPRIATELY. PT IS A ONE ASSIST TO THE BSC. PT REPORTS PAIN IN THE L. LEG, MEDICATING PER EMAR. URINE COLLECTED AND TOX CAME BACK POSITIVE FOR METHAMPHETAMINE. PT APPEARED TO BE WITHDRAWING WITH VISIBE TREMOR, CALLED DR. STARR TO EXPRESS MY CONCERN, NO NEW ORDERS, CONTINUE TO MONITOR. MONITORING WAS DONE IN THE THE ROOM, RESULTS WERE WNL. PT DENIES NAUSEA, VOMITING, AND SOB. WILL REPORT TO DAY NURSE.
[2022-03-07 04:54] LABS: BASOPHILS ABSOLUTE AUTO 0.03 K/mm3 (0.00-0.23); BASOPHILS PERCENT AUTO 0 % (0-2); EOSINOPHILS ABSOLUTE AUTO 0.01 K/mm3 (0.00-0.68); EOSINOPHILS PERCENT AUTO 0 % (0-6); Hematocrit 31.3 % (33.0-51.0); Hemoglobin 9.8 g/dL (11.5-16.0); IMMATURE GRAN ABSOLUTE AUTO 0.09 K/mm3 (0.00-0.10); IMMATURE GRAN PERCENT AUTO 1 % (0-1); LYMPHOCYTES ABSOLUTE AUTO 2.39 K/mm3 (0.84-5.20); LYMPHOCYTES PERCENT AUTO 15 % (21-46); MONOCYTES ABSOLUTE AUTO 0.63 K/mm3 (0.16-1.47); MONOCYTES PERCENT AUTO 4 % (4-13); Mean Corpuscular HGB Conc 31.3 g/dL (31.5-36.5); Mean Corpuscular Volume 93 fL (80-100); Mean Platelet Volume 9.2 fL (9.1-12.4); NEUTROPHILS ABSOLUTE AUTO 12.33 K/mm3 (1.96-9.15); NEUTROPHILS PERCENT AUTO 80 % (41-73); Platelet Count 285 K/mm3 (150-400); RDW Coefficient Variation 13.4 % (11.7-14.2); RDW Standard Deviation 44.7 fL (35.1-46.3); Red Blood Cell Count 3.38 M/mm3 (3.80-5.20); White Blood Cell Count 15.48 K/mm3 (4.00-11.30)
[2022-03-07 05:22] LABS: Albumin, Blood 1.9 g/dL (3.4-5.0); Albumin/Globulin Ratio 0.5 (0.8-1.8); Bilirubin, Total 0.5 mg/dL (0.1-1.0); Bun/Creatinine Ratio 8.7 (12.0-20.0); Calcium, Blood 8.4 mg/dL (8.5-10.1); Creatinine, Blood 0.57 mg/dL (0.40-1.00); Globulin, Blood 3.9 g/dL (2.2-4.0); Magnesium, Blood 1.5 mg/dL (1.6-2.4); Potassium, Blood 3.3 mmol/L (3.5-5.5); Total Protein, Blood 5.8 g/dL (6.4-8.2)
--- NOTE | 2022-03-07 18:07 | NUR ---
SHIFT SUMMARY; PATIENT HAD UNEVENTFUL DAY. BOYFRIEND AT BEDSIDE MOST OF DAY. PATIENT APPEARS TO HAVE EPSODES OF PANIC AND ANXIETY THEN DEEP SLEEPING. SHE IS ABLE TO TRANSFER TO BEDSIDE COMMODE. REFUSES ASSIST BUT IS VERY PAINFULL WHILE MOVING. HER CHEM BG ALL ABOVE 200 TODAY AND WAS COVERED AT ALL MEALS WITH INSULIN. SHE INSISTS ON HAVING HEATING PAD ON HER BACK AND WAS FINALLLY PERSUADED TO USE AN ICEPACK ON HER LEG. HER VITAL SIGNS ARE ELEVATED WITH HEART RATE HIGH THE 110'S AND BLOOD PRESSURE 130 SYSTOLIC MOST OF DAY UNTIL RECEVED LABETOL NOW SYSTOLIIC IS 104. PATIENT HAS TEMPERATURE IN NORMAL RANGE ALL DAY. SHE IS ABLE TO MAKE HER NEEDS KNOWN AND HAS A GOOD APPETITE. WILL REMAIN AVAILABLE FOR THIS PATIENT UNTIL REPORT AND HAND OFF TO SHILOH SHIFT RN.
[2022-03-08 04:48] LABS: Hematocrit 31.2 % (33.0-51.0); Mean Corpuscular HGB Conc 32.1 g/dL (31.5-36.5); Mean Corpuscular Volume 90 fL (80-100); Mean Platelet Volume 9.5 fL (9.1-12.4); Platelet Count 294 K/mm3 (150-400); RDW Coefficient Variation 13.4 % (11.7-14.2); RDW Standard Deviation 43.6 fL (35.1-46.3); Red Blood Cell Count 3.45 M/mm3 (3.80-5.20); White Blood Cell Count 14.84 K/mm3 (4.00-11.30)
[2022-03-08 05:07] LABS: Albumin, Blood 1.9 g/dL (3.4-5.0); Albumin/Globulin Ratio 0.5 (0.8-1.8); Bilirubin, Total 0.4 mg/dL (0.1-1.0); Bun/Creatinine Ratio 12.4 (12.0-20.0); Calcium, Blood 8.9 mg/dL (8.5-10.1); Creatinine, Blood 0.64 mg/dL (0.40-1.00); Globulin, Blood 4.2 g/dL (2.2-4.0); Potassium, Blood 3.1 mmol/L (3.5-5.5); Total Protein, Blood 6.1 g/dL (6.4-8.2)
--- NOTE | 2022-03-08 11:53 | NUR ---
MOTORING DONE, GE NOT CONNECTING, STRIP PRINTED ON PAPER, FHT 125, MINIMAL TO MODERATE VARIBILITY WITH NO ACCELS ON MONITOR FOR 40 MINUTES, STRIP CONSISTANT WITH MATERNAL MEDICATIONS, DR PHILIP CALLED AND UPDATED OF NONREACTIVE STRIP, FLUIDS AND FOOD OFFERED TO ENCOURAGE ACCELS, BIOPHYSICAL DONE BEFORE MONITORING WHICH WAS 05/16, CONTRACTION X1 PATIENT STATES NOT FEELING ANY CONTRACTIONS AND STATES FEELING BABY MOVE ALL OVER,
--- NOTE | 2022-03-08 19:49 | NUR ---
SHIFT SUMMARY; PATIENT HAS EPISODES OF CRYING AND YELLING THIS AM. DR.MARY PHILIP COMES TO ROOM AND ORDER TO STOP FLUIDS IV. OXYCODONE 5MG Q4 HOUS PRN SEVERE PAIN. PATIENT IS ALSO MOVED TO HIGH SLIDING SCALE AND HUMULOG TO 24 UNITS BID SC. PATIENT IS NOTED TO BE VERY SLEEPY DURING DAY. HER LEFT LEG APPEARS LESS RED AND SWOLLEN TODAY. PATIENT IS ABLE TO MOVE FROM BED TO COMMODE WITH LESS DIFFICULTY. REPORT ND HAND OFF TO NOAH ADAM AT SHIFT CHANGE.
[2022-03-09 04:57] LABS: Hematocrit 27.2 % (33.0-51.0); Hemoglobin 8.9 g/dL (11.5-16.0); Mean Corpuscular HGB 29.5 pg (26.0-34.0); Mean Corpuscular HGB Conc 32.7 g/dL (31.5-36.5); Mean Corpuscular Volume 90 fL (80-100); Mean Platelet Volume 9.7 fL (9.1-12.4); Platelet Count 250 K/mm3 (150-400); RDW Coefficient Variation 13.3 % (11.7-14.2); RDW Standard Deviation 43.5 fL (35.1-46.3); Red Blood Cell Count 3.02 M/mm3 (3.80-5.20)
[2022-03-09 05:33] LABS: Albumin, Blood 1.6 g/dL (3.4-5.0); Albumin/Globulin Ratio 0.4 (0.8-1.8); Bilirubin, Total 0.3 mg/dL (0.1-1.0); Bun/Creatinine Ratio 13.9 (12.0-20.0); Calcium, Blood 8.8 mg/dL (8.5-10.1); Creatinine, Blood 0.65 mg/dL (0.40-1.00); Potassium, Blood 3.4 mmol/L (3.5-5.5); Total Protein, Blood 5.6 g/dL (6.4-8.2)
[2022-03-09 14:08] LABS: Vancomycin, Trough 19.1 ug/mL (5.0-10.0)
--- NOTE | 2022-03-09 19:29 | NUR ---
SUMM- PT SBA TO BSC - MADE IT TO BATHROOM FOR SHOWER, TTWB ON LEFT RELATED TO PAIN AND SWELLING. PAIN CONTROLLED WITH TYLENOL AND OXY ONCE TODAY. PT APPEARED ACCESSIVELY SLEEYP EYES HALF OPENED. BOYFRIEND WENT IN/OUT OF THE ROOM FREQ THROUOUT SHIFT, DOOR SHUT WHEN HE COMES TO VISIT. PT TOLERATING FOOD AND FLUIDS. OPEN SORE ON R FOOT DRESSING CHANGED WITH MEPILEX AND TO 2 OPEN AREAS LLE. LLE EDEMA +3, RLE EDEMA +2. ENC TO ELEVATE LEGS. RN IN TO PERFORM U.S. AROUND 1600. BLOOD SUGARS IMPROVING SLOWLY.
--- NOTE | 2022-03-09 19:49 | NUR ---
MRSA 2t positive wound culture contact isolation initiated for draining le wounds discussion with PT on rational & tx of MRSA & contagion aspect. Discussed current abx tx with pharmacy & susceptibility confirmed to simoneo.
[2022-03-10 04:29] LABS: Hematocrit 26.4 % (33.0-51.0); Hemoglobin 8.4 g/dL (11.5-16.0); Mean Corpuscular HGB 28.6 pg (26.0-34.0); Mean Corpuscular HGB Conc 31.8 g/dL (31.5-36.5); Mean Corpuscular Volume 90 fL (80-100); Mean Platelet Volume 9.5 fL (9.1-12.4); Platelet Count 298 K/mm3 (150-400); RDW Coefficient Variation 13.3 % (11.7-14.2); RDW Standard Deviation 43.7 fL (35.1-46.3); Red Blood Cell Count 2.94 M/mm3 (3.80-5.20); White Blood Cell Count 9.01 K/mm3 (4.00-11.30)
[2022-03-10 04:49] LABS: Albumin, Blood 1.5 g/dL (3.4-5.0); Albumin/Globulin Ratio 0.4 (0.8-1.8); Bilirubin, Total 0.3 mg/dL (0.1-1.0); Bun/Creatinine Ratio 15.1 (12.0-20.0); Calcium, Blood 8.4 mg/dL (8.5-10.1); Creatinine, Blood 0.66 mg/dL (0.40-1.00); Globulin, Blood 3.9 g/dL (2.2-4.0); Potassium, Blood 3.9 mmol/L (3.5-5.5); Total Protein, Blood 5.4 g/dL (6.4-8.2)
--- NOTE | 2022-03-10 05:32 | NUR ---
female with mrsa in draining wounds continues on antibotics to tx infection. OB does heart tones successfully. HX of active substance abuse during meth positive & homelessness. PT has lost previous child to CPS custody due to active subtance abuse. Needs safe dc plan or faces removal of from CPS per report. seems oblivious. PT at times squeals loudly versus effective communication. Multiple requests, snacks almost constantly while awake. Agrees to have help repostioning in bed to elevate edematous bilat le above heart level. Mild decrease in pitting edema. Medicated for pain x 2 with helpful effect. Wound care provided to bilat le .
--- NOTE | 2022-03-10 14:13 | NUR ---
CALLED DR ARIEL PHILIP AND NOTIFIED HER THAT I HELD AM NPH AND THAT SHE DIPPED TO 66 BY 1100. INSTRUCTED TO NOT GIVE ANY NPO UNTIL RE-EVAL BEFORE DINNER FOR PM DOSE.
--- NOTE | 2022-03-10 18:38 | NUR ---
SUMMARY- PT A/O X4, PLEASANT AND COOPERATIVE TODAY. SWELLING AND REDNESS GREATLY DERCEASED TO BLE. OPEN AREAS WITH LESS SEROUS DISCHARGE. PAIN CONTROLLED WITH OXY AND TYLENOL. MEDICATED FOR PAIN 2 TIMES THIS SHIFT. STARTED COMPLAINING ABOUT L SCAP MUSCULAR PAIN AND ENC ROM. ORDERED WILMA BAH CREAM. TOLERATING FOOD AND FLUID. GETS UP TO BSC VOIDING CLEAR YELLOW. BOYFRIEND IN THE ROOM MOST OF THE SHIFT NAPPING. BLOOD SUGARS LOW THIS AM AND HELD NPH, GAVE NPH THIS PM. WILL F/U WITH GLUCOSE AFTER DINNER AND HS. WILL REPORT TO SHILOH ADAM.
--- NOTE | 2022-03-11 04:50 | NUR ---
PT C/O SHOULDER PAIN, JEWEL OUT OF STOCK PER PHARMACY. MEDICATION SWITCHED TO ICY HOT PATCHES. WARM COMPRESSES APPLIED TO LEGS WITH SOME RELIEF. PT STATES TYLENOL DOES NOT HELP WITH PAIN, ONLY GIVEN ROXICODONE. OB WITH PATIENT AROUND 0400 CHECKING BABY..
[2022-03-11 05:35] LABS: Hematocrit 28.6 % (33.0-51.0); Mean Corpuscular HGB 28.8 pg (26.0-34.0); Mean Corpuscular HGB Conc 31.5 g/dL (31.5-36.5); Mean Corpuscular Volume 91 fL (80-100); Mean Platelet Volume 9.2 fL (9.1-12.4); NRBC ABSOLUTE 0.02 K/mm3 (0.00-0.02); NRBC Auto 0.2 /100 WBC (0.0-0.2); Platelet Count 327 K/mm3 (150-400); RDW Coefficient Variation 13.4 % (11.7-14.2); RDW Standard Deviation 43.9 fL (35.1-46.3); Red Blood Cell Count 3.13 M/mm3 (3.80-5.20); White Blood Cell Count 9.08 K/mm3 (4.00-11.30)
[2022-03-11 05:58] LABS: Albumin, Blood 1.5 g/dL (3.4-5.0); Albumin/Globulin Ratio 0.4 (0.8-1.8); Bilirubin, Total 0.2 mg/dL (0.1-1.0); Bun/Creatinine Ratio 16.3 (12.0-20.0); Calcium, Blood 8.9 mg/dL (8.5-10.1); Creatinine, Blood 0.67 mg/dL (0.40-1.00); Globulin, Blood 4.2 g/dL (2.2-4.0); Potassium, Blood 3.8 mmol/L (3.5-5.5); Total Protein, Blood 5.7 g/dL (6.4-8.2)
[2022-03-11] MEDS ORDERED: CLIN150 PO (16:46)
[2022-03-11] MEDS ORDERED: Acetaminophen650 M1 PO (16:46)
[2022-03-11] MEDS ORDERED: HUMULIN N100 UNIT/6 SC (16:47)
--- NOTE | 2022-03-11 18:43 | NUR ---
D/C REVIEWED WITH PT. IV REMOVED INTACT. SHE VERBALIZED UNDERSTANDING MEDS AND INST. AGREES TO SEE DR Fabiola PHILIP MONDAY. BOYFRIEND STATES HAS GONE TO CONTRACT [employer]. AND ON WAY TO GO GET ABX. WHEELED TO DOOR AT 1843
== END 2022-03-11 18:45 | disposition home or self-care (01) | DRG 831 ==
LOC: ER 09:30 → MEDS 14:45 → ER 15:40 → MEDS 15:57
PROVIDERS: Internal Medicine; Student in an Organized Health Care Education/Training Program; ADMIT Obstetrics & Gynecology
DX: O98.813 Other maternal infectious and parasitic diseases complicating pregnancy, third trimester (principal); A41.02 Sepsis due to Methicillin resistant Staphylococcus aureus; L03.116 Cellulitis of left lower limb; O24.313 Unspecified pre-existing diabetes mellitus in pregnancy, third trimester; O99.323 Drug use complicating pregnancy, third trimester; O10.913 Unspecified pre-existing hypertension complicating pregnancy, third trimester; O99.713 Diseases of the skin and subcutaneous tissue complicating pregnancy, third trimester; Z3A.32 32 weeks gestation of pregnancy; E87.6 Hypokalemia; F15.90 Other stimulant use, unspecified, uncomplicated; O99.283 Endocrine, nutritional and metabolic diseases complicating pregnancy, third trimester; M54.9 Dorsalgia, unspecified; E11.65 Type 2 diabetes mellitus with hyperglycemia; G89.29 Other chronic pain; O26.893 Other specified pregnancy related conditions, third trimester; Z59.00 Homelessness unspecified; Z87.891 Personal history of nicotine dependence; Z79.899 Other long term (current) drug therapy; Z79.4 Long term (current) use of insulin; Z90.89 Acquired absence of other organs; Z98.890 Other specified postprocedural states; Z88.0 Allergy status to penicillin; Z91.14 Patient's other noncompliance with medication regimen
CPT/HCPCS: 36415; 59025; 76805; 76819; 80053; 80202; 81001; 82947; 83605; 83735; 85025; 85027; 87040; 87070; 87077; 87186; 87205; 93971; 96361; 96366; 96367; 96372; 96374; 96375; 96376; 97110; 97162; 99285-25; A9270; G0378; J0690; J0696; J1650; J1815; J2270; J2916; J3370; J3475; J7030; J7040; J7050; J7060

== ENCOUNTER → 2022-03-31 | Outpatient (CLI) | payer OTHER ==
[~2022-03-31] MED LIST changes: +Acetaminophen650 M1 PO; +CLIN150 PO; +FAMO20 PO; +HUMULIN N100 UNIT/6 SC; +INSULIN LI100 UNIT/6 SC; +ONE-A-DAY PREN1 EAC1 PO
== END | disposition home or self-care (01) ==
LOC: LAB 16:40 → LAB SHORT 16:40
DX: O09.93 Supervision of high risk pregnancy, unspecified, third trimester (principal)
CPT/HCPCS: 87081; 87150

== ENCOUNTER 2022-09-26 23:42 | Emergency (ER) | payer OTHER ==
[~2022-09-26] VITALS: Ht 149.9 cm; Wt 69.4 kg
[~2022-09-26 23:42] MED LIST changes: +ELIQUIS5 MG PO
[2022-09-27 00:57] LABS: BASOPHILS ABSOLUTE AUTO 0.04 K/mm3 (0.00-0.23); BASOPHILS PERCENT AUTO 0 % (0-2); EOSINOPHILS ABSOLUTE AUTO 0.12 K/mm3 (0.00-0.68); EOSINOPHILS PERCENT AUTO 1 % (0-6); Hematocrit 34.9 % (33.0-51.0); Hemoglobin 11.4 g/dL (11.5-16.0); IMMATURE GRAN ABSOLUTE AUTO 0.04 K/mm3 (0.00-0.10); IMMATURE GRAN PERCENT AUTO 0 % (0-1); LYMPHOCYTES ABSOLUTE AUTO 2.16 K/mm3 (0.84-5.20); LYMPHOCYTES PERCENT AUTO 18 % (21-46); MONOCYTES ABSOLUTE AUTO 0.75 K/mm3 (0.16-1.47); MONOCYTES PERCENT AUTO 6 % (4-13); Mean Corpuscular HGB 25.4 pg (26.0-34.0); Mean Corpuscular HGB Conc 32.7 g/dL (31.5-36.5); Mean Corpuscular Volume 78 fL (80-100); Mean Platelet Volume 9.1 fL (9.1-12.4); NEUTROPHILS ABSOLUTE AUTO 9.11 K/mm3 (1.96-9.15); NEUTROPHILS PERCENT AUTO 75 % (41-73); Platelet Count 408 K/mm3 (150-400); RDW Coefficient Variation 15.1 % (11.7-14.2); RDW Standard Deviation 42.7 fL (35.1-46.3); Red Blood Cell Count 4.48 M/mm3 (3.80-5.20); White Blood Cell Count 12.22 K/mm3 (4.00-11.30)
[2022-09-27 01:15] LABS: Albumin, Blood 3.7 g/dL (3.4-5.0); Calcium, Blood 8.8 mg/dL (8.5-10.1); Creatinine, Blood 0.59 mg/dL (0.40-1.00); Globulin, Blood 3.8 g/dL (2.2-4.0); Total Protein, Blood 7.5 g/dL (6.4-8.2)
[2022-09-27] MEDS ORDERED: ELIQUIS5 MG PO (03:57)
== END 2022-09-27 04:54 | disposition home or self-care (01) ==
LOC: ER 23:42
PROVIDERS: Student in an Organized Health Care Education/Training Program
DX: I82.412 Acute embolism and thrombosis of left femoral vein (principal); I10 Essential (primary) hypertension; E11.9 Type 2 diabetes mellitus without complications; F17.220 Nicotine dependence, chewing tobacco, uncomplicated; Z88.0 Allergy status to penicillin; Z79.899 Other long term (current) drug therapy; Z79.01 Long term (current) use of anticoagulants; Z79.4 Long term (current) use of insulin
CPT/HCPCS: 36415; 71260; 80053; 85025; 93005; 93010; 99284-25; A9270; Q9967

== ENCOUNTER 2023-03-05 12:22 | Emergency (ER) | payer OTHER ==
[~2023-03-05] VITALS: Ht 152.4 cm; Wt 68.0 kg
[~2023-03-05 12:22] MED LIST changes: +CORTISONE60 GM TOP
[2023-03-05 14:45] VITALS: BP 145/106
== END 2023-03-05 14:59 | disposition home or self-care (01) ==
LOC: ER 12:22
DX: L23.7 Allergic contact dermatitis due to plants, except food (principal); E11.65 Type 2 diabetes mellitus with hyperglycemia; Z79.4 Long term (current) use of insulin; Z87.891 Personal history of nicotine dependence; Z88.0 Allergy status to penicillin; Z88.5 Allergy status to narcotic agent; Z88.8 Allergy status to other drugs, medicaments and biological substances; Z79.899 Other long term (current) drug therapy
CPT/HCPCS: 82947; J0702; J3301

== ENCOUNTER 2023-04-19 11:20 | Emergency (ER) | payer OTHER ==
[~2023-04-19] VITALS: Ht 152.4 cm; Wt 68.0 kg
[2023-04-19 11:28] VITALS: BP 159/83
[2023-04-19] MEDS ORDERED: TRIDERM28.4 GM TOP (12:26)
[2023-04-19] MEDS ORDERED: Bactrim Ds Tab1 EACH PO (12:26)
== END 2023-04-19 12:42 | disposition home or self-care (01) ==
LOC: ER 11:20
DX: L23.7 Allergic contact dermatitis due to plants, except food (principal); L02.91 Cutaneous abscess, unspecified; B96.89 Other specified bacterial agents as the cause of diseases classified elsewhere; E11.9 Type 2 diabetes mellitus without complications; I10 Essential (primary) hypertension; F17.220 Nicotine dependence, chewing tobacco, uncomplicated; Z88.0 Allergy status to penicillin; Z88.5 Allergy status to narcotic agent; Z88.6 Allergy status to analgesic agent; Z79.4 Long term (current) use of insulin; Z79.01 Long term (current) use of anticoagulants
CPT/HCPCS: 99282

== ENCOUNTER 2023-05-14 17:52 | Emergency (ER) | payer OTHER ==
[~2023-05-14] VITALS: Ht 149.9 cm; Wt 68.0 kg
[~2023-05-14 17:52] MED LIST changes: +TRIDERM28.4 GM TOP
[2023-05-14 19:04] LABS: BASOPHILS ABSOLUTE AUTO 0.03 K/mm3 (0.00-0.23); BASOPHILS PERCENT AUTO 0 % (0-2); EOSINOPHILS PERCENT AUTO 0 % (0-6); Hematocrit 38.8 % (33.0-51.0); Hemoglobin 13.1 g/dL (11.5-16.0); IMMATURE GRAN ABSOLUTE AUTO 0.08 K/mm3 (0.00-0.10); IMMATURE GRAN PERCENT AUTO 1 % (0-1); LYMPHOCYTES ABSOLUTE AUTO 2.24 K/mm3 (0.84-5.20); LYMPHOCYTES PERCENT AUTO 15 % (21-46); MONOCYTES ABSOLUTE AUTO 1.07 K/mm3 (0.16-1.47); MONOCYTES PERCENT AUTO 7 % (4-13); Mean Corpuscular HGB 28.2 pg (26.0-34.0); Mean Corpuscular HGB Conc 33.8 g/dL (31.5-36.5); Mean Corpuscular Volume 83 fL (80-100); Mean Platelet Volume 9.3 fL (9.1-12.4); NEUTROPHILS ABSOLUTE AUTO 11.81 K/mm3 (1.96-9.15); NEUTROPHILS PERCENT AUTO 78 % (41-73); Platelet Count 382 K/mm3 (150-400); RDW Coefficient Variation 12.7 % (11.7-14.2); RDW Standard Deviation 38.5 fL (35.1-46.3); Red Blood Cell Count 4.65 M/mm3 (3.80-5.20); White Blood Cell Count 15.23 K/mm3 (4.00-11.30)
[2023-05-14 19:25] LABS: C-REACTIVE PROTEIN, EXT RANGE 17.8 mg/dL (0.000-0.300)
[2023-05-14 19:26] LABS: Albumin, Blood 2.9 g/dL (3.4-5.0); Albumin/Globulin Ratio 0.7 (0.8-1.8); Bilirubin, Total 0.9 mg/dL (0.1-1.0); Bun/Creatinine Ratio 5.8 (12.0-20.0); Calcium, Blood 8.5 mg/dL (8.5-10.1); Creatinine, Blood 0.69 mg/dL (0.40-1.00); Globulin, Blood 3.9 g/dL (2.2-4.0); Potassium, Blood 3.6 mmol/L (3.5-5.5); Total Protein, Blood 6.8 g/dL (6.4-8.2)
[2023-05-14 21:15] VITALS: BP 98/69
[2023-05-14] MEDS ORDERED: CLIN300 PO (21:15)
== END 2023-05-14 21:55 | disposition home or self-care (01) ==
LOC: ER 17:52
PROVIDERS: Physician Assistant
DX: L03.211 Cellulitis of face (principal); D72.829 Elevated white blood cell count, unspecified; Y04.0XXA Assault by unarmed brawl or fight, initial encounter; Z88.0 Allergy status to penicillin; Z88.5 Allergy status to narcotic agent; Z88.8 Allergy status to other drugs, medicaments and biological substances; Z79.4 Long term (current) use of insulin; Z79.01 Long term (current) use of anticoagulants; Z79.899 Other long term (current) drug therapy; E11.9 Type 2 diabetes mellitus without complications; I10 Essential (primary) hypertension; F17.220 Nicotine dependence, chewing tobacco, uncomplicated
CPT/HCPCS: 70487; 80053; 84703; 85025; 86140; 96374-59; 99284-25; A9270; J1885; Q9967

== ENCOUNTER 2023-07-16 13:01 | Emergency (ER) | payer OTHER ==
[~2023-07-16] VITALS: Ht 152.4 cm; Wt 66.2 kg
[~2023-07-16 13:01] MED LIST changes: +CLIN300 PO
[2023-07-16 13:26] VITALS: BP 142/98
[2023-07-16] MEDS ORDERED: DOXY100 PO (14:34)
== END 2023-07-16 14:44 | disposition home or self-care (01) ==
LOC: ER 13:01
DX: S61.532A Puncture wound without foreign body of left wrist, initial encounter (principal); S63.502A Unspecified sprain of left wrist, initial encounter; E11.9 Type 2 diabetes mellitus without complications; W54.0XXA Bitten by dog, initial encounter; Z87.891 Personal history of nicotine dependence; Z88.0 Allergy status to penicillin; Z79.4 Long term (current) use of insulin; Z79.01 Long term (current) use of anticoagulants
CPT/HCPCS: 73110; 99283-25

== ENCOUNTER 2023-12-06 01:11 | Emergency (ER) | payer OTHER ==
[~2023-12-06] VITALS: Ht 149.9 cm; Wt 59.0 kg
[~2023-12-06 01:11] MED LIST changes: +DOXY100 PO
[2023-12-06 02:45] VITALS: BP 123/84
[2023-12-06] MEDS ORDERED: [UNRECOGNIZED DRUG - OTHER] TOP (03:35)
== END 2023-12-06 03:35 | disposition home or self-care (01) ==
LOC: ER 01:11
DX: L29.9 Pruritus, unspecified (principal); Z20.7 Contact with and (suspected) exposure to pediculosis, acariasis and other infestations; Z88.0 Allergy status to penicillin; Z88.5 Allergy status to narcotic agent; Z79.899 Other long term (current) drug therapy; Z79.4 Long term (current) use of insulin; E11.9 Type 2 diabetes mellitus without complications; I10 Essential (primary) hypertension; F17.220 Nicotine dependence, chewing tobacco, uncomplicated
CPT/HCPCS: 99282

== ENCOUNTER 2025-01-29 01:21 | Emergency (ER) | payer OTHER ==
[~2025-01-29] VITALS: Ht 152.4 cm; Wt 79.4 kg
[~2025-01-29 01:21] MED LIST changes: +[UNRECOGNIZED DRUG - OTHER] TOP
[2025-01-29 02:54] LABS: BASOPHILS ABSOLUTE AUTO 0.02 K/mm3 (0.00-0.23); BASOPHILS PERCENT AUTO 0 % (0-2); EOSINOPHILS ABSOLUTE AUTO 0.07 K/mm3 (0.00-0.68); EOSINOPHILS PERCENT AUTO 1 % (0-6); Hematocrit 33.6 % (33.0-51.0); Hemoglobin 11.3 g/dL (11.5-16.0); IMMATURE GRAN ABSOLUTE AUTO 0.02 K/mm3 (0.00-0.10); IMMATURE GRAN PERCENT AUTO 0 % (0-1); LYMPHOCYTES ABSOLUTE AUTO 3.55 K/mm3 (0.84-5.20); LYMPHOCYTES PERCENT AUTO 41 % (21-46); MONOCYTES ABSOLUTE AUTO 0.55 K/mm3 (0.16-1.47); MONOCYTES PERCENT AUTO 6 % (4-13); Mean Corpuscular HGB 29.4 pg (26.0-34.0); Mean Corpuscular HGB Conc 33.6 g/dL (31.5-36.5); Mean Corpuscular Volume 88 fL (80-100); Mean Platelet Volume 10.4 fL (9.1-12.4); NEUTROPHILS ABSOLUTE AUTO 4.51 K/mm3 (1.96-9.15); NEUTROPHILS PERCENT AUTO 52 % (41-73); Platelet Count 254 K/mm3 (150-400); RDW Coefficient Variation 11.9 % (11.7-14.2); RDW Standard Deviation 38.2 fL (35.1-46.3); Red Blood Cell Count 3.84 M/mm3 (3.80-5.20); White Blood Cell Count 8.72 K/mm3 (4.00-11.30)
[2025-01-29 03:27] LABS: Albumin, Blood 2.5 g/dL (3.4-5.0); Albumin/Globulin Ratio 0.6 (0.8-1.8); Bilirubin, Total 0.4 mg/dL (0.1-1.0); Bun/Creatinine Ratio 10.4 (12.0-20.0); Calcium, Blood 8.5 mg/dL (8.5-10.1); Creatinine, Blood 0.68 mg/dL (0.40-1.00); Potassium, Blood 4.1 mmol/L (3.5-5.5); Total Protein, Blood 6.5 g/dL (6.4-8.2)
[2025-01-29 04:36] LABS: Bacterial Vaginosis PCR Negative (NEGATIVE); Candida glabrata-krusei, PCR NOT DETECTED (NOT DETECT)
[2025-01-29 04:37] LABS: Candida Group, PCR DETECTED (NOT DETECT)
[2025-01-29 05:05] LABS: Source, Urine Clean Catch
[2025-01-29 05:07] LABS: Chlamydia Trachomatis Vaginal NOT DETECTED (NOT DETECT); Neisseria Gonorrhoea Vaginal NOT DETECTED (NOT DETECT)
[2025-01-29 05:09] LABS: Appearance, Urine Hazy (Clear); Bilirubin, Urine Neg (Neg); Blood, Urine 1+ (Neg); Glucose Qualitative, Urine 4+ (Neg); Ketones, Urine Neg (Neg); Leukocyte Esterase, Urine 2+ (Neg); Nitrite, Urine Pos (Neg); Protein, Urine Neg (Neg); Urobilinogen, Urine NORM (Normal)
[2025-01-29 05:17] LABS: Color, Urine Pale Yellow (P-Yellow)
[2025-01-29 05:18] LABS: Bacteria Many /hpf; Squamous Epithelial Cells Many /hpf (Few); White Blood Cells, Urine 25-50 /hpf (0-5)
[2025-01-29 05:19] LABS: Renal Epithelial Rare /hpf (0-Rare)
[2025-01-29] MEDS ORDERED: Fluconazole 100 MG Tab PO ONE (05:50)
[2025-01-29] MEDS ORDERED: CEFP200 PO (05:52)
[2025-01-29] MEDS ORDERED: Cefpodoxime Proxetil 200 MG Tab PO ONE (05:55)
[2025-01-29] MEDS ORDERED: Clotrimazole 1% Cream 15 GM Tube EXT ONE (06:00)
[2025-01-29 06:30] VITALS: BP 140/90
== END 2025-01-29 06:56 | disposition home or self-care (01) ==
LOC: ER 01:21
PROVIDERS: Student in an Organized Health Care Education/Training Program
DX: O98.812 Other maternal infectious and parasitic diseases complicating pregnancy, second trimester (principal); B37.31 Acute candidiasis of vulva and vagina; O23.42 Unspecified infection of urinary tract in pregnancy, second trimester; N39.0 Urinary tract infection, site not specified; O24.112 Pre-existing type 2 diabetes mellitus, in pregnancy, second trimester; O10.012 Pre-existing essential hypertension complicating pregnancy, second trimester; O99.332 Smoking (tobacco) complicating pregnancy, second trimester; F17.220 Nicotine dependence, chewing tobacco, uncomplicated; Z3A.24 24 weeks gestation of pregnancy; Z88.0 Allergy status to penicillin; Z88.5 Allergy status to narcotic agent; Z79.4 Long term (current) use of insulin; Z79.01 Long term (current) use of anticoagulants; Z79.899 Other long term (current) drug therapy
CPT/HCPCS: 80053; 81001; 81515; 84702; 85025; 86592; 87491; 87591; 99283; A9270

== ENCOUNTER 2025-02-10 17:20 | Inpatient (IN) | payer OTHER ==
[~2025-02-10] VITALS: Ht 160 cm; Wt 74.5 kg
[2025-02-10 18:46] VITALS: BP 145/82
[2025-02-10] MEDS ORDERED: Acetaminophen 500 MG Tab PO PRN (18:55)
[2025-02-10] MEDS ORDERED: Insulin NPH 100 Unit / ML 10ML Vial SC SCH (19:00)
[2025-02-10 19:06] LABS: BASOPHILS ABSOLUTE AUTO 0.01 K/mm3 (0.00-0.23); BASOPHILS PERCENT AUTO 0 % (0-2); EOSINOPHILS ABSOLUTE AUTO 0.07 K/mm3 (0.00-0.68); EOSINOPHILS PERCENT AUTO 1 % (0-6); Hematocrit 31.3 % (33.0-51.0); Hemoglobin 10.8 g/dL (11.5-16.0); IMMATURE GRAN ABSOLUTE AUTO 0.03 K/mm3 (0.00-0.10); IMMATURE GRAN PERCENT AUTO 0 % (0-1); LYMPHOCYTES ABSOLUTE AUTO 2.43 K/mm3 (0.84-5.20); LYMPHOCYTES PERCENT AUTO 24 % (21-46); MONOCYTES PERCENT AUTO 5 % (4-13); Mean Corpuscular HGB Conc 34.5 g/dL (31.5-36.5); Mean Corpuscular Volume 84 fL (80-100); NEUTROPHILS ABSOLUTE AUTO 7.21 K/mm3 (1.96-9.15); NEUTROPHILS PERCENT AUTO 70 % (41-73); Platelet Count 340 K/mm3 (150-400); RDW Coefficient Variation 12.3 % (11.7-14.2); RDW Standard Deviation 37.2 fL (35.1-46.3); Red Blood Cell Count 3.73 M/mm3 (3.80-5.20); White Blood Cell Count 10.25 K/mm3 (4.00-11.30)
[2025-02-10 20:00] LABS: Albumin, Blood 2.5 g/dL (3.4-5.0); Albumin/Globulin Ratio 0.6 (0.8-1.8); Bilirubin, Total 0.4 mg/dL (0.1-1.0); Bun/Creatinine Ratio 14.4 (12.0-20.0); Calcium, Blood 8.3 mg/dL (8.5-10.1); Creatinine, Blood 0.56 mg/dL (0.40-1.00); Potassium, Blood 3.6 mmol/L (3.5-5.5); Thyroid Stimulating Hormone 0.769 uIU/mL (0.360-4.800); Total Protein, Blood 6.5 g/dL (6.4-8.2)
[2025-02-10] MEDS ORDERED: NS 1,000 ML IV SCH (20:35)
[2025-02-10 20:37] VITALS: BP 133/93
[2025-02-10] MEDS ORDERED: Insulin Human Lispro 100 Units/ML 3ML Syringe SC SCH (21:00)
[2025-02-10 23:06] VITALS: BP 137/76
[2025-02-11] MEDS ORDERED: Enoxaparin 100 MG/ML 1ML SYR SC SCH
[2025-02-11 03:12] VITALS: BP 129/73
[2025-02-11 06:35] LABS: Bun/Creatinine Ratio 43.7 (12.0-20.0); Calcium, Blood 8.8 mg/dL (8.5-10.1); Creatinine, Blood 0.41 mg/dL (0.40-1.00); Potassium, Blood 3.7 mmol/L (3.5-5.5)
[2025-02-11 06:37] VITALS: BP 132/92
[2025-02-11 07:17] VITALS: BP 120/88
[2025-02-11] MEDS ORDERED: Insulin Human Lispro 100 Units/ML 3ML Syringe SC SCH (08:30)
[2025-02-11] MEDS ORDERED: Labetalol HCL 100 MG TAB PO SCH (09:00)
[2025-02-11] MEDS ORDERED: Prenatal Vit/FE Fumarate/FA 1 Tab PO SCH (09:00)
[2025-02-11 09:27] VITALS: BP 119/72
[2025-02-11 11:50] VITALS: BP 131/85
--- NOTE | 2025-02-11 12:01 | NUR ---
PT DEMONOSTRATES ABILITY TO DRAW UP INSULIN FROM A VILE WITH A SYRINGE FOR LONG ACTING INSULING AND PRIMING AN INSULIN PEN FOR SHORT ACTING INSULIN. SHE IS ALSO ABLE ACCURATELY ADMINISTERED INSULIN WITH BOTH A PEN AND SYRINGE.
[2025-02-11] MEDS ORDERED: Acetaminophen 325 MG TABLET PO ONE (13:10)
--- NOTE | 2025-02-11 13:45 | NUR ---
PT STATING SHE IS GOING TO LEAVE AT 1400 WITHOUT OR WITHOUT DISCHARGE ORDERS. DR. STARR ROUNDING ON PT. AMA PAPERWORK SIGNED. PT DISCHARGED, ACCOMPANIED TO EXIT.
[2025-02-11] MEDS ORDERED: Insulin NPH 100 Unit / ML 10ML Vial SC SCH (21:00)
[2025-02-13 10:45] LABS: HEPATITIS B SURFACE ANTIGEN Negative (Negative)
[2025-02-13 17:08] LABS: HEPATITIS C AB CIA INTERP Negative (Negative); HEPATITIS C ANTIBODY CIA INDEX 0.04 IV
[2025-02-14 08:57] LABS: HIV 1,2 COMBO ANTIGEN/ANTIBODY Negative
== END 2025-02-11 13:40 | disposition home or self-care (01) | DRG 832 ==
LOC: OBS 17:20 → BC 17:43
PROVIDERS: ADMIT Obstetrics & Gynecology
DX: O24.013 Pre-existing type 1 diabetes mellitus, in pregnancy, third trimester (principal); O16.3 Unspecified maternal hypertension, third trimester; O99.323 Drug use complicating pregnancy, third trimester; E10.65 Type 1 diabetes mellitus with hyperglycemia; F12.90 Cannabis use, unspecified, uncomplicated; O34.211 Maternal care for low transverse scar from previous cesarean delivery; N85.8 Other specified noninflammatory disorders of uterus; Z3A.28 28 weeks gestation of pregnancy; Z86.718 Personal history of other venous thrombosis and embolism; Z53.29 Procedure and treatment not carried out because of patient's decision for other reasons; Z87.891 Personal history of nicotine dependence; T38.3X6A Underdosing of insulin and oral hypoglycemic [antidiabetic] drugs, initial encounter; Z91.138 Patient's unintentional underdosing of medication regimen for other reason; O26.893 Other specified pregnancy related conditions, third trimester; O24.119 Pre-existing type 2 diabetes mellitus, in pregnancy, unspecified trimester
CPT/HCPCS: 36415; 76805; 80048; 80053; 81015; 82570; 82947; 83036; 84156; 84443; 85025; 86592; 86762; 86803; 86850; 86900; 86901; 87086; 87340; 87389; A9270; J1650; J1815; J7030

== ENCOUNTER → 2025-02-10 | Outpatient (CLI) | payer OTHER ==
[~2025-02-10] MED LIST changes: +CEFP200 PO
[2025-02-10 15:59] LABS: Source, Urine Clean Catch
[2025-02-10 18:04] LABS: Bacteria Few /hpf; Squamous Epithelial Cells Many /hpf (Few)
[2025-02-10 18:06] LABS: Yeast/Fungi Urine Rare /hpf
[2025-02-10 18:17] LABS: U Amphetamine Screen Not Detected; U Barbituate Screen Not Detected; U Benzodiazapine Screen Not Detected; U Buprenorphine Screen Not Detected; U Cannabinoids Screen DETECTED; U Cocaine Screen Not Detected; U Methadone Screen Not Detected; U Methamphetamine Screen Not Detected; U Opiates Screen Not Detected; U Oxycodone Screen Not Detected; U Phencyclidine Screen Not Detected
[2025-02-10 19:48] LABS: Creatinine, Urine Random 38.6 mg/dL (27.00-270.00); Protein, Urine Random 10.6 mg/dL (0.0-11.9); Protein/Creat Ratio, Ur Random 0.3
== END ==
LOC: LAB 15:55 → LAB SHORT 15:55
PROVIDERS: Obstetrics & Gynecology
DX: Z34.81 Encounter for supervision of other normal pregnancy, first trimester (principal); O24.119 Pre-existing type 2 diabetes mellitus, in pregnancy, unspecified trimester
CPT/HCPCS: 81015; 82570; 84156; 87086